=== PATIENT | female | born 1955 | race African-American/Black ===

== ENCOUNTER 2018-05-23 11:59 | Day surgery (SDC) | payer OTHER, MEDICAID ==
[~2018-05-23 11:59] MED LIST: PROPOFOL 200 MG INJ
[2018-05-23] MEDS ORDERED: LIDOCAINE 2% (SDV) 5 ML INJ (13:43)
[2018-05-23] MEDS ORDERED: PROPOFOL 40 ML (13:43)
[2018-05-23] MEDS ORDERED: MIDAZOLAM 1 MG/ML 2 ML INJ (13:53)
[2018-05-23] MEDS ORDERED: ONDANSETRON 4 MG INJ IV (14:00)
== END 2018-05-23 15:34 | disposition home or self-care (01) ==
LOC: GIL 11:59
DX: Z12.11 Encounter for screening for malignant neoplasm of colon (principal); D12.5 Benign neoplasm of sigmoid colon; K29.60 Other gastritis without bleeding; K64.8 Other hemorrhoids; I10 Essential (primary) hypertension; J44.9 Chronic obstructive pulmonary disease, unspecified
CPT/HCPCS: 43239; 88305